=== PATIENT | female | born 1955 | race Caucasian/White ===

== ENCOUNTER 2017-12-19 07:05 | Day surgery (SDC) | payer OTHER ==
--- OUTSIDE RECORDS SUMMARY | 2017-12-19 07:12 | XMS REPORT ---
:1955 Author Organization eClinicalWorks Care Team Providers Name Role Phone Lexa Colmenares Provider Role Unavailable Allergies No Known Allergies Problems Problem Type Condition Code Onset Dates Condition Status Assessment Type 2 diabetes mellitus with E11.8 Active unspecified complications Problem Mixed hyperlipidemia E78.2 Active Problem Type 2 diabetes mellitus with E11.65 Active hyperglycemia Problem HTN (hypertension), benign I10 Active Problem GERD without esophagitis K21.9 Active Problem History of liver cancer Z85.05 Active Problem Type 2 diabetes mellitus with E11.8 Active unspecified complications Problem Primary insomnia F51.01 Active Medications Medication Code Code Instructions Start End Status Dosage System Date Date [facility] 78320843612 300 UNIT/ML Active Inject 82 SoloStar Subcutaneous units SQ, Once a day Pt is titraing every 3 day by adding 2 unit Results No Known Results Summary Purpose eClinicalWorks Submission
--- OUTSIDE RECORDS SUMMARY | 2017-12-19 07:12 | XMS REPORT ---
:1955 Author Organization eClinicalWorks Care Team Providers Name Role Phone Darrian Lexa Provider Role Unavailable Allergies No Known Allergies Problems Problem Type Condition Code Onset Dates Condition Status Assessment Mixed hyperlipidemia E78.2 Active Assessment Type 2 diabetes mellitus with E11.8 Active unspecified complications Assessment History of liver cancer Z85.05 Active Problem Mixed hyperlipidemia E78.2 Active Problem Type 2 diabetes mellitus with E11.65 Active hyperglycemia Problem HTN (hypertension), benign I10 Active Problem GERD without esophagitis K21.9 Active Problem History of liver cancer Z85.05 Active Problem Type 2 diabetes mellitus with E11.8 Active unspecified complications Problem Primary insomnia F51.01 Active Assessment History of shingles Z86.19 Active Assessment GERD without esophagitis K21.9 Active Assessment HTN (hypertension), benign I10 Active Assessment Primary insomnia F51.01 Active Medications Medication Code Code Instructions Start End Status Dosage System Date Date Omeprazole [facility] 36901262173 40 MG Orally Active 1 capsule Once a day Lovaza [facility] 61457297127 1 GM Orally Active 2 capsules Twice a day Toujeo SoloStar [facility] 99794635218 300 UNIT/ML Active Inject 75 Subcutaneous units SQ Once a day once daily Tradjenta [facility] 90216238489 5 MG Orally Active 1 tablet Once a day Lisinopril [facility] 44001897725 20 MG Orally Active 1 tablet Once a day Dexilant [facility] 87168678436 60 MG Orally Inactive 1 capsule Once a day Ambien [facility] 21717611962 10 MG Orally Inactive 1 tablet Once a day at bedtime as needed Valacyclovir [facility] 65298646554 500 MG Orally Active 1 tablet HCl Once a day Trazodone HCl ND 09619896688 100 MG Orally Active take 1 tab Once a day at bedtime Crestor [facility] 24426804625 20 MG Orally Active 1 tablet Once a day Carvedilol [facility] 62624001882 6.25 MG Orally Active 1 tablet Twice a day Results No Known Results Summary Purpose eClinicalWorks Submission
--- OUTSIDE RECORDS SUMMARY | 2017-12-19 07:12 | XMS REPORT | Clinical Summary ---
:1955 Author Organization [facility] Address [address] [place] [address] Care Team Providers Name Role Phone Warren Kumar MD Primary Care Provider Allergies Active Allergy Reactions Severity Noted Date Comments No Known Drug Allergies 11/15/2015 Current Medications Prescription Sig. Disp. Refills Start Date End Date Status carvedilol (COREG) carvedilol 12.5 Active 12.5 MG tablet mg tablet; once daily dexlansoprazole Take 60 mg by Active (DEXILANT) 60 mg mouth daily. capsule valACYclovir Take 500 mg by Active (VALTREX) 500 MG mouth as needed. tablet aspirin (ECOTRIN) 81 Take 81 mg by Active MG enteric coated mouth once. tablet lisinopril daily. 10/29/2015 Active (PRINIVIL,ZESTRIL) 20 MG tablet fluticasone (FLONASE) 2 sprays by Each 16 g 0 01/22/2016 Active 50 mcg/actuation Nare route nasal spray daily. ONETOUCH VERIO strip CHECK GLUCOSE 400 strip 3 03/07/2016 Active test strips FOUR TIMES A DAY LOVAZA 1 gram capsule TAKE 2 CAPSULES 360 capsule 3 03/07/2016 Active TWICE A DAY WITH MEALS ONETOUCH VERIO strip CHECK GLUCOSE 400 strip 3 03/07/2016 Active test strips FOUR TIMES A DAY MAGNESIUM ORAL Take by mouth 3 Active (three) times a day. insulin lispro INJECT 18 UNITS 60 mL 3 06/17/2016 Active (HumaLOG KwikPen) 100 THREE TIMES A unit/mL injection DAY BEFORE MEALS penIndications: Uncontrolled type 2 diabetes mellitus without complication, with long-term current use of insulin ([facility]) dulaglutide 0.75 Inject 0.75 mg 13 Syringe 0 06/17/2016 Active mg/0.5 mL pen under the skin injectorIndications: every 7 days. Uncontrolled type 2 diabetes mellitus without complication, with long-term current use of insulin ([facility]) citalopram (CeleXA) Take 1 tablet 30 tablet 0 06/25/2016 Active 20 MG tablet (20 mg total) by mouth nightly. insulin GLARGINE Inject 30 Units 9 mL 3 07/18/2016 Active (TOUJEO SOLOSTAR) 300 under the skin unit/mL (1.5 mL) daily. insulin penIndications: Uncontrolled type 2 diabetes mellitus without complication, with long-term current use of insulin ([facility]) CRESTOR 10 mg tablet Take 1 tablet 30 tablet 5 08/14/2016 Active (10 mg total) by mouth daily. liraglutide (VICTOZA Inject 0.2 mL 6 mL 5 09/26/2016 Active 2-LORENZO) 0.6 mg/0.1 mL (1.2 mg total) (18 mg/3 mL) pen under the skin injectorIndications: daily. Uncontrolled type 2 diabetes mellitus without complication, with long-term current use of insulin ([facility]) insulin glulisine 100 Inject 18 Units 30 mL 5 09/26/2016 Active unit/mL insulin under the skin 3 penIndications: (three) times a Uncontrolled type 2 day. diabetes mellitus without complication, with long-term current use of insulin ([facility]) zolpidem (AMBIEN) 10 Take 1/2 to 1 30 tablet 0 06/25/2016 mg tablet tab nightly as 8 needed for insomnia carvedilol (COREG) Take 1 tablet 180 tablet 3 09/18/2016 12.5 MG tablet (12.5 mg total) 8 by mouth 2 (two) times a day. lisinopril Take 1 tablet 180 tablet 3 09/18/2016 (PRINIVIL,ZESTRIL) 20 (20 mg total) by 8 mg tablet mouth 2 (two) times a day. insulin regular Inject 18 Units 20 mL 3 09/26/2016 (HumuLIN-R, under the skin 3 8 NovoLIN-R) 100 (three) times a unit/mL day before meals injectionIndications: Indications: Type 2 Diabetes Type 2 Diabetes Mellitus Mellitus. Active Problems Problem Noted Date Nonalcoholic fatty liver disease 11/21/2015 Liver cancer (HCC) 11/20/2015 Hepatocellular carcinoma (HCC) 08/31/2015 Disorder of liver 08/31/2015 Candidiasis of vagina 08/01/2015 Uncontrolled type 2 diabetes mellitus (HCC) 08/01/2015 Seasonal allergic rhinitis due to pollen 10/27/2012 Osteoarthritis 06/18/2011 Anxiety state 07/02/2010 Diabetes mellitus (HCC) 07/02/2010 Essential hypertension 07/02/2010 Mixed hyperlipidemia 07/02/2010 Encounters Date Type Specialty Care Team Description 12/20/2016 Orders Only Endocrinology Joi Ahn MA after 12/18/2016 Immunizations Name Dates Previously Given Next Due FLUCELVAX QUAD PF (0.5mL syringe) 12/14/2015 Pneumococcal Polysaccharide 06/18/2011 Td 03/21/2009 Family History Medical History Relation Name Comments Cancer Maternal Grandmother pancreatic Anemia Mother Diabetes type II Mother Heart disease Mother cabg Hyperlipidemia Mother Relation Name Status Comments Father Maternal Grandfather Maternal Grandmother Mother Alive Paternal Grandfather Paternal Grandmother Social History Tobacco Use Types Packs/Day Years Used Date Former Smoker Cigarettes 0.25 3 Quit: 1975 Smokeless Tobacco: Never Used Comments: social smoker only Alcohol Use Drinks/Week oz/Week Comments No Sex Assigned at Date Recorded Not on file Last Filed Vital Signs Not on file Plan of Treatment Health Maintenance Due Date Last Done Comments COLON CANCER SCREENING 2007 SHINGRIX VACCINE (#1) 2007 DIABETIC RETINAL EYE EXAM 05/30/2016 05/31/2015 DIABETIC FOOT EXAM 12/13/2016 12/14/2015, 12/14/2015 ZOSTER VACCINE 2017 INFLUENZA VACCINE 09/17/2017 12/14/2015, 12/14/2015 BREAST CANCER SCREENING 12/28/2017 12/29/2015, 12/29/2015 CERVICAL CANCER SCREENING 12/24/2018 12/25/2015 Implants Implanted Type Area Associate Professor Of [employer] Device Expiration Model / Identifier Date Serial / Lot Device Vasclr Clsr Baln Cath 10ml Lkng Syr 5fr Llanos Mynxgrip - [id number] Cardiovascular N/A: ACCESS CLOSURE 06/16/2017 [id number] / Implanted: 08/31/2015 (Quantity not on file) Implants N/A INC / [id number] Bead Emblztn Ylw Lbl 2ml 100-300um Lc Bead - [id number] Surgical N/A: BIOCOMPATIBLES [id number] / Implanted: 08/31/2015 (Quantity not on file) Implants; N/A INC / Expanders; Extenders; Surgical Wires Bead Emblztn Ylw Lbl 2ml 100-300um Lc Bead - [id number] Surgical N/A: BIOCOMPATIBLES [id number] / Implanted: 08/31/2015 (Quantity not on file) Implants; N/A INC / Expanders; Extenders; Surgical Wires Results Not on fileafter 12/18/2016
--- OUTSIDE RECORDS SUMMARY | 2017-12-19 07:12 | XMS REPORT ---
:1955 Author Organization eClinicalWorks Care Team Providers Name Role Phone ColmenaresLexa Provider Role Unavailable Allergies, Adverse Reactions, Alerts Substance Reaction Event Type N.K.D.A. Info Not Available Non Drug Allergy Problems Problem Type Condition Code Onset Dates Condition Status Assessment History of liver cancer Z85.05 Active Assessment Type 2 diabetes mellitus with E11.8 Active unspecified complications Problem Mixed hyperlipidemia E78.2 Active Problem Type 2 diabetes mellitus with E11.65 Active hyperglycemia Problem HTN (hypertension), benign I10 Active Problem GERD without esophagitis K21.9 Active Problem History of liver cancer Z85.05 Active Problem Type 2 diabetes mellitus with E11.8 Active unspecified complications Problem Primary insomnia F51.01 Active Assessment GERD without esophagitis K21.9 Active Assessment HTN (hypertension), benign I10 Active Assessment Primary insomnia F51.01 Active Assessment History of shingles Z86.19 Active Assessment Mixed hyperlipidemia E78.2 Active Medications Medication Code Code Instructions Start End Status Dosage System Date Date Lisinopril ND 23760110753 20 MG Orally Active 1 tablet Once a day Valacyclovir ND 40600532781 500 MG Orally Active 1 tablet HCl Once a day Toujeo Max ND 13839146561 300 UNIT/ML Oct 15, Active Inject 60 SoloStar Subcutaneous 2018 units BID BID Trazodone HCl ND 02715839081 100 MG Orally Active take 1 tab Once a day at bedtime Carvedilol ND 22259648077 6.25 MG Orally Active 1 tablet Twice a day Trazodone HCl ND 59874133951 100 MG Active TAKE ONE TABLET BY MOUTH AT BEDTIME Omeprazole ND 21711416360 40 MG Orally Active 1 capsule Once a day Crestor ND 46354620561 20 MG Orally Active 1 tablet Once a day Tradjenta ND 19658557311 5 MG Orally Active 1 tablet Once a day Toujeo SoloStar ND 54569610091 300 UNIT/ML Inactive Inject 60 Subcutaneous units SQ BID Twice daily Omeprazole ND 83171304242 40 MG Orally Active 1 capsule Once a day Lovaza [facility] 36145782004 1 GM Orally Active 2 capsules Twice a day Crestor [facility] 79904227734 20 MG Orally Active 1 tablet Once a day Fluconazole [facility] 51964179793 150 MG Orally Oct 15, Oct 17, Active 1 tablet 2017 2017 Results No Known Results Summary Purpose eClinicalWorks Submission
--- OUTSIDE RECORDS SUMMARY | 2017-12-19 07:12 | XMS REPORT ---
:1955 Author Organization eClinicalWorks Care Team Providers Name Role Phone Lexa Colmenares Provider Role Unavailable Allergies, Adverse Reactions, Alerts Substance Reaction Event Type N.K.D.A. Info Not Available Non Drug Allergy Problems Problem Type Condition Code Onset Dates Condition Status Assessment History of liver cancer Z85.05 Active Assessment Type 2 diabetes mellitus with E11.8 Active unspecified complications Assessment Acute non-recurrent maxillary J01.00 Active sinusitis Problem Mixed hyperlipidemia E78.2 Active Problem Type [...] Start End Status Dosage System Date Date Valacyclovir HCl [facility] 80466011876 500 MG Orally Active 1 tablet Once a day Lovaza [facility] 46319492700 1 GM Orally Active 2 capsules Twice a day Toujeo SoloStar [facility] 39070346180 300 UNIT/ML Active Inject 60 Subcutaneous units SQ BID Twice daily Tradjenta [facility] 67961669839 5 MG Orally Active 1 tablet Once a day Crestor [facility] 08943489337 20 MG Orally Active 1 tablet Once a day Augmentin ND 90138789803 875-125 MG July 15July Active 1 tablet Orally every 2017 08, hrs 2018 Carvedilol [facility] 74199114904 6.25 MG Orally Active 1 tablet Twice a day Omeprazole ND 50696372332 40 MG Orally Active 1 capsule Once a day Lisinopril ND 13408172684 20 MG Orally Active 1 tablet Once a day Trazodone HCl ND 43691836095 100 MG Orally Active take 1 tab Once a day at bedtime Results No Known Results Summary Purpose eClinicalWorks Submission
--- OUTSIDE RECORDS SUMMARY | 2017-12-19 07:13 | XMS REPORT ---
:1955 Author Organization eClinicalWorks Care Team Providers Name Role Phone Lexa Colmenares Provider Role Unavailable Allergies No Known Allergies Problems Problem Type Condition Code Onset Dates Condition Status Problem Mixed hyperlipidemia E78.2 Active Problem Type 2 diabetes mellitus with E11.65 Active hyperglycemia Problem HTN (hypertension), benign I10 Active Problem GERD without esophagitis K21.9 Active Problem History of liver cancer Z85.05 Active Problem Type 2 diabetes mellitus with E11.8 Active unspecified complications Problem Primary insomnia F51.01 Active Medications No Known Medications Results No Known Results Summary Purpose eClinicalWorks Submission
[2017-12-19] MEDS ORDERED: NA CHLORIDE 0.9% 1,000 ML ONE (07:42)
[2017-12-19] MEDS ORDERED: LIDOCAINE 1% MPF 5 ML VIAL ONE (08:36)
[2017-12-19] MEDS ORDERED: PROPOFOL 200 MG/20 ML VIAL IV ONE (08:36)
--- NOTE | 2017-12-19 09:20 | ENDO RPT ---
[address], [address] EGD PROCEDURE REPORT EXAM DATE: 12/19/2017 PATIENT NAME: Juliana Alcantara MR#: [id number] BIRTHDATE: 1955 ATTENDING: Raimundo Rios DR STATUS: outpatient GENERAL COUNSELOR: Dee Dee Sullivan Lead RN and Trevon Ross INDICATIONS: The patient is a 62 yr old Female here for an EGD due to GERD and mid epigastric abdominal pain PROCEDURE PERFORMED: EGD with biopsy for H. pylori and EGD with snare polypectomy MEDICATIONS: Per Anesthesia. TOPICAL ANESTHETIC: none CONSENT: The patient understands the risks and benefits of the procedure and understands that these risks include, but are not limited to: sedation, allergic reaction, infection, perforation and/or bleeding. Alternative means of evaluation and treatment include, among others: physical exam, x-rays, and/or surgical intervention. The patient elects to proceed with this endoscopic procedure. DESCRIPTION OF PROCEDURE: During intra-op preparation period all mechanical medical equipment was checked for proper function. Hand hygiene and appropriate measures for infection prevention was taken. Procedure, possible complications, and alternatives including but not limited to the possibility of bleeding, perforation, tear, infection, sepsis, need for surgery, need for blood transfusion, and anesthesia related complications were explained to the patient. After the risks, benefits and alternatives of the procedure were thoroughly explained, Informed consent was verified, confirmed and timeout was successfully executed by the treatment team. The patient was placed in the left lateral position. The patient was anesthetized with topical anesthesia. Through the anesthetized oropharyngeal area, the scope was passed without any difficulty. The Pentax [id number] ([id number]) endoscope was introduced through the mouth and advanced to the first portion of the duodenum. Retroflexed views revealed a small hiatal hernia. The gastroscope was then slowly withdrawn and removed. A pedunculated polyp was found in the bulb of the duodenum. diminutive fleshy non-inflamed Polyp was snared. Polyp was retrieved and sent to pathology. A pedunculated polyp was found in the body of the stomach. likely benign soft smooth small round non-inflamed non-bleeding Polyp was snared. Polyp was retrieved and sent to pathology. Mild gastritis was found in the body and the antrum of the stomach. A biopsy for H. pylori was taken. There was poor peristalsis in distal esophagus, poor GEJ relaxation abnormal patch of tissue in proximal esophagus, there also was an abnormal patch of esophagus in the proximal esophagus, a biopsy was taken. ADVERSE EVENTS: There were no complications. IMPRESSIONS: 1. A pedunculated polyp was found in the bulb of the duodenum 2. A pedunculated polyp was found in the body of the stomach 3. Mild gastritis was found in the body and the antrum of the stomach 4. Poor peristalsis in distal esophagus, poor GEJ relaxation RECOMMENDATIONS: 1. anti-reflux regimen 2. acid suppression therapy 3. await biopsy results 4. follow-up: office 2 week(s) 5. avoid NSAIDS 6. esophagram 7. follow-up of helicobacter pylori status, treat if indicated REPEAT EXAM: Raimundo Rios DR eSigned: Raimundo Rios DR 12/19/2017 9:19 AM cc: CPT CODES: ICD9 CODES: PATIENT NAME: Juliana Alcantara MR#: [id number]
--- NOTE | 2017-12-19 09:23 | ENDO RPT ---
[address], [address] COLONOSCOPY PROCEDURE REPORT EXAM DATE: 12/19/2017 PATIENT NAME: Juliana Alcantara MR #: [id number] BIRTHDATE: 1955 ATTENDING: Raimundo Rios DR STATUS: outpatient BIOINFORMATICS TEAM MEMBER: Dee Dee Sorensen RN and Trevon Ross INDICATIONS: The patient is a 62 yr old Female here for a colonoscopy due to colon cancer screening PROCEDURE PERFORMED: Colonoscopy with biopsy - cold polypectomy MEDICATIONS: Per Anesthesia. ESTIMATED BLOOD LOSS: None CONSENT: The patient understands the risks and benefits of the procedure and understands that these risks include, but are not limited to: sedation, allergic reaction, infection, perforation and/or bleeding. Alternative means of evaluation and treatment include, among others: physical exam, x-rays, and/or surgical intervention. The patient elects to proceed with this endoscopic procedure. DESCRIPTION OF PROCEDURE: During intra-op preparation period all mechanical medical equipment was checked for proper function. Hand hygiene and appropriate measures for infection prevention was taken. Procedure, possible complications, alternatives including, but not limited to possibility of bleeding, perforation, tear, infection, sepsis, need for surgery, need for blood transfusion, were explained to the patient. After the risks, benefits and alternatives of the procedure were thoroughly explained, Informed consent was verified, confirmed and timeout was successfully executed by the treatment team. The patient was placed in the left lateral position. A digital rectal exam was performed and revealed internal hemorrhoids. After appropriate level of anesthesia, the scope was passed. The EC-[id number] ([id number]) endoscope was introduced through the anus and advanced to the cecum, which was identified by both the appendix and ileocecal valve. The quality of the prep was fair. The instrument was then slowly withdrawn as the colon was fully examined. Scope withdrawal time was 9 minutes. COLON FINDINGS: Few diverticulum were noted in the sigmoid colon. No bleeding was noted from the diverticulosis. A diminutive smooth sessile polyp with a friable surface was found in the rectum. A polypectomy was performed with cold forceps. The resection was complete, the polyp tissue was completely retrieved and sent to histology. . The scope was then completely withdrawn from the patient and the procedure terminated. ADVERSE EVENTS: There were no complications. IMPRESSIONS: 1. Mild diverticulosis was noted in the sigmoid colon 2. Diminutive sessile polyp was found in the rectum; polypectomy was performed with cold forceps RECOMMENDATIONS: 1. avoid NSAIDS 2. avoid NSAIDS for 2 weeks 3. await biopsy results 4. fiber rich diet 5. follow-up: office 2 week(s) 6. yearly hemoccult starting in 4 years 7. hemorrhoidal hygiene RECALL: Return in 5 year(s) for Colonoscopy, pending biopsy results. Raimundo Rios DR eSigned: Raimundo Rios DR 12/19/2017 9:22 AM cc: CPT CODES: ICD9 CODES: PATIENT NAME: Juliana Alcantara MR#: [id number]
== END 2017-12-19 09:52 | disposition home or self-care (01) ==
LOC: OR 07:05
PROVIDERS: ATTEND Surgery
PROC: 0DB98ZX Excision of Duodenum, Via Natural or Artificial Opening Endoscopic, Diagnostic (ICD-10-PCS; 2017-12-19)
PROC: 0DB68ZX Excision of Stomach, Via Natural or Artificial Opening Endoscopic, Diagnostic (ICD-10-PCS; 2017-12-19)
PROC: 0DBP8ZX Excision of Rectum, Via Natural or Artificial Opening Endoscopic, Diagnostic (ICD-10-PCS; 2017-12-19)
PROC: 0DB18ZX Excision of Upper Esophagus, Via Natural or Artificial Opening Endoscopic, Diagnostic (ICD-10-PCS; principal; 2017-12-19 09:15)
PROC: 0DB68ZX Excision of Stomach, Via Natural or Artificial Opening Endoscopic, Diagnostic (ICD-10-PCS; 2017-12-19 09:15)
DX: K29.50 Unspecified chronic gastritis without bleeding (principal); K21.0 Gastro-esophageal reflux disease with esophagitis; K31.7 Polyp of stomach and duodenum; K29.80 Duodenitis without bleeding; Z12.11 Encounter for screening for malignant neoplasm of colon; K57.30 Diverticulosis of large intestine without perforation or abscess without bleeding; K62.1 Rectal polyp; R19.8 Other specified symptoms and signs involving the digestive system and abdomen; K64.8 Other hemorrhoids; E11.9 Type 2 diabetes mellitus without complications; I10 Essential (primary) hypertension; E78.2 Mixed hyperlipidemia; F51.01 Primary insomnia; Z85.05 Personal history of malignant neoplasm of liver; Z80.3 Family history of malignant neoplasm of breast; Z80.41 Family history of malignant neoplasm of ovary; Z83.3 Family history of diabetes mellitus; Z82.49 Family history of ischemic heart disease and other diseases of the circulatory system
CPT/HCPCS: 82962; 88305; 88312; J2704; J7030

== ENCOUNTER 2020-05-22 07:05 | Day surgery (SDC) | payer OTHER ==
[2020-05-18 14:14] LABS: Absolute Lymphocytes (CBC) 2.6 K/uL (0.7-4.9); Basophils % 0.7 % (0-1.3); Hematocrit 36.6 % (36.0-45.0); Lymphocytes % 37.1 % (15.3-44.8); MPV 7.5 fL (7.6-11.3); RBC Red Blood Cell Count 4.18 M/uL (3.86-4.86)
[2020-05-18 14:22] LABS: BUN Blood Urea Nitrogen 13 mg/dL (7-18); Bicarbonate 28 mmol/L (21-32); Glucose Level 236 mg/dL (74-106); Potassium 3.8 mmol/L (3.5-5.1); Sodium Level 139 mmol/L (136-145)
--- NOTE | 2020-05-18 14:28 | RAD REPORT ---
EXAM DESCRIPTION: RAD - Chest Pa And Lat (2 Views) - 05/18/2020 2:00 pm CLINICAL HISTORY: preop, patient pending leg soft mass removal COMPARISON: December 15, 2009 TECHNIQUE: Frontal and lateral views of the chest were obtained. FINDINGS: The lungs are clear of focal process. No failure or volume overload. Interstitial pattern is similar to comparison. Heart size is normal and central vasculature is within normal limits. No pleural effusion or pneumothorax seen. No acute bony finding noted. No aortic abnormality. IMPRESSION: No acute cardiopulmonary process. No significant change from comparison study.
[2020-05-22] MEDS ORDERED: CEFAZOLIN/SWI 1gm 1 GM/10 ML SYR ONE (07:53)
[2020-05-22] MEDS ORDERED: NA CHLORIDE 0.9% 1,000 ML ONE (07:53)
[2020-05-22] MEDS ORDERED: BUPIVACAINE 0.5% PF 10 ML VIAL ONE (08:14)
[2020-05-22] MEDS ORDERED: FENTANYL CITR 100 MCG/2 ML ONE (08:28)
[2020-05-22] MEDS ORDERED: ONDANSETRON 4 MG/2 ML VIAL ONE ×2 (08:28→09:57)
[2020-05-22] MEDS ORDERED: KETOROLAC 30 MG/ML INJ ONE (08:28)
[2020-05-22] MEDS ORDERED: LIDOCAINE 2% MPF 5 ML VIAL ONE (08:28)
[2020-05-22] MEDS ORDERED: MIDAZOLAM HCL 2 MG/2 ML INJ ONE (08:28)
[2020-05-22] MEDS ORDERED: dexAMETHasone 4 MG/ML VIAL ONE (08:28)
[2020-05-22] MEDS ORDERED: propofoL 200 MG/20 ML VIAL IV ONE (08:28)
[2020-05-22] MEDS: HYDROMORPHONE HCL 1 MG/ML INJ ONE ×2 (09:39→09:44)
[2020-05-22] MEDS ORDERED: HYDROCODONE/APAP 7.5/325 MG TAB ONE (10:49)
[2020-05-22 11:01] VITALS: BP 113/56; TEMP 97.1
[2020-05-22 11:03] VITALS: O2SAT 96
--- NOTE | 2020-05-22 20:07 | OP ---
Date of Procedure: 05/22/2020 Surgeon: Sanket Conroy MD Associate Professor Of Kinesiology: None. Preoperative Diagnosis: Right hip mass. Postoperative Diagnosis: Right hip mass. Procedure: Excision of right hip mass 3 x 4 cm with layered closure. Estimated Blood Loss: Minimal. Specimen: Right hip likely lipoma. Anesthesia: General. Complications: None. The patient tolerated the procedure in stable condition, taken to Recovery in good general condition. Operative Note: The patient was brought to the OR and placed in supine position. General anesthesia was begun.Wedge was placed in the right hip location anterolateral portion of the central field and then patient was prepped and draped in usual sterile fashion. Marcaine 0.5% was infiltrated locally. A 15-blade was used to make a 4 cm incision. Subcutaneous tissue was divided. Deep to subcutaneous tissue, a 3 x 4 cm likely lipoma identified, excised, sent to Pathology as specimen. Wound was irrigated. Bleeding was controlled with cautery. 2-0 chromic was used to approximate subcutaneous tissue and 4-0 nylon used to close the skin. Sterile dressing was applied. The patient was awakened and taken to Recovery in good general condition. Discharge Note: The patient will go to Day Surgery and home when stable. Disposition: Home. Condition: Stable. Discharge Instructions: Resume home medications and diet. Activity as tolerated. No heavy lifting. Remove outer dressing in 2 days. Shower. Keep wound clean and dry. Follow up in my office in 10 days, call for appointment. Tylenol No. 3 one tablet p.o. q.4 p.r.n. pain. /MODL Voice ID: [id number] Report ID: [id number]
== END 2020-05-22 10:47 | disposition home health service (06) ==
LOC: OR 07:05
PROVIDERS: ATTEND Surgery
PROC: 0JBC0ZZ Excision of Pelvic Region Subcutaneous Tissue and Fascia, Open Approach (ICD-10-PCS; principal; 2020-05-22 08:30)
DX: D17.1 Benign lipomatous neoplasm of skin and subcutaneous tissue of trunk (principal); D48.5 Neoplasm of uncertain behavior of skin; Z20.822 Contact with and (suspected) exposure to COVID-19
CPT/HCPCS: 93005; 85025; 80048; 36415; 82947 ×2; 88304; 71046; 11404; U0002; J2704; J1100; J2250; J3010; J1170; J0690; J7030; J2405 ×2; 88305